=== PATIENT | male | born 1940 | race Two or more races ===

== ENCOUNTER 2018-11-28 05:47 | Day surgery (SDC) | payer OTHER ==
[~2018-11-28 05:47] MED LIST: AMLODIPINE BESYL5 MG PO; COZAAR100 MG PO; NAPROXEN500 M1 PO
== END 2018-11-28 13:15 | disposition home or self-care (01) ==
LOC: CIR.AMB 05:47
DX: M47.816 Spondylosis without myelopathy or radiculopathy, lumbar region (principal)

== ENCOUNTER 2019-05-01 09:17 | Day surgery (SDC) | payer OTHER | END 2019-05-01 16:25 | disposition home or self-care (01) | LOC: CIR.AMB 09:17 | DX: M51.17 Intervertebral disc disorders with radiculopathy, lumbosacral region (principal); M48.061 Spinal stenosis, lumbar region without neurogenic claudication ==